=== PATIENT | female | born 1990 | race Two or more races ===

== ENCOUNTER 2020-04-27 09:56 | Emergency (ER) | payer OTHER ==
[~2020-04-27] VITALS: Ht 154.9 cm; Wt 52.6 kg
[~2020-04-27 09:56] MED LIST: PANADOL EXTRA500 MG PO
[2020-04-27] MEDS ORDERED: OSEL75CA PO (13:55)
[2020-04-27] MEDS ORDERED: ZITHROMAX500 MG PO (13:55)
== END 2020-04-27 14:18 | disposition home or self-care (01) ==
LOC: ER 09:56
DX: J11.1 Influenza due to unidentified influenza virus with other respiratory manifestations (principal); B96.0 Mycoplasma pneumoniae [M. pneumoniae] as the cause of diseases classified elsewhere; Z03.818 Encounter for observation for suspected exposure to other biological agents ruled out

== ENCOUNTER 2020-11-12 09:02 | Emergency (ER) | payer OTHER ==
[~2020-11-12] VITALS: Ht 154.9 cm; Wt 52.6 kg
[~2020-11-12 09:02] MED LIST changes: +OSEL75CA PO; +ZITHROMAX500 MG PO
[2020-11-12] MEDS ORDERED: LEVOFLOXACIN500 MG PO (13:43)
== END 2020-11-12 14:34 | disposition home or self-care (01) ==
LOC: ER 09:02
DX: R10.2 Pelvic and perineal pain (principal); R30.0 Dysuria

== ENCOUNTER 2021-09-03 10:05 | Emergency (ER) | payer OTHER ==
[~2021-09-03] VITALS: Ht 154.9 cm; Wt 49.4 kg
[~2021-09-03 10:05] MED LIST changes: +LEVOFLOXACIN500 MG PO
[2021-09-03] MEDS ORDERED: BACTRIM DS TAB1 EACH PO (10:13)
== END 2021-09-03 14:46 | disposition home or self-care (01) ==
LOC: ER 10:05
DX: B34.9 Viral infection, unspecified (principal); R53.81 Other malaise

== ENCOUNTER 2021-09-27 01:53 | Emergency (ER) | payer OTHER ==
[~2021-09-27] VITALS: Ht 154.9 cm; Wt 52.6 kg
[~2021-09-27 01:53] MED LIST changes: +BACTRIM DS TAB1 EACH PO
[2021-09-27] MEDS ORDERED: PEPCID40 MG PO (06:44)
[2021-09-27] MEDS ORDERED: BENADRYL25 MG PO (06:44)
== END 2021-09-27 06:52 ==
LOC: ER 01:53
DX: L29.8 Other pruritus (principal); T36.8X5A Adverse effect of other systemic antibiotics, initial encounter; Y92.9 Unspecified place or not applicable; R06.02 Shortness of breath

== ENCOUNTER 2021-09-28 12:39 | Emergency (ER) | payer OTHER ==
[~2021-09-28] VITALS: Ht 154.9 cm; Wt 52.6 kg
[~2021-09-28 12:39] MED LIST changes: +BENADRYL25 MG PO; +PEPCID40 MG PO
== END 2021-09-28 14:35 | disposition home or self-care (01) ==
LOC: ER 12:39
DX: T50.905A Adverse effect of unspecified drugs, medicaments and biological substances, initial encounter (principal); Y92.9 Unspecified place or not applicable; X58.XXXA Exposure to other specified factors, initial encounter

== ENCOUNTER 2021-12-03 14:09 | Emergency (ER) | payer OTHER ==
[~2021-12-03] VITALS: Ht 154.9 cm; Wt 49.0 kg
[2021-12-03] MEDS ORDERED: MORGIDOX100 MG PO (14:24)
== END 2021-12-03 19:52 | disposition home or self-care (01) ==
LOC: ER 14:09
DX: N23 Unspecified renal colic (principal); N13.30 Unspecified hydronephrosis; Z88.2 Allergy status to sulfonamides

== ENCOUNTER 2022-05-01 17:28 | Emergency (ER) | payer OTHER ==
[~2022-05-01] VITALS: Ht 154.9 cm; Wt 49.9 kg
[~2022-05-01 17:28] MED LIST changes: +MORGIDOX100 MG PO
== END 2022-05-01 23:30 | disposition home or self-care (01) ==
LOC: ER 17:28
DX: K52.9 Noninfective gastroenteritis and colitis, unspecified (principal); Z88.2 Allergy status to sulfonamides